=== PATIENT | female | born 1995 | race Caucasian/White ===

== ENCOUNTER 2022-02-13 19:31 | Inpatient (IN) ==
[2022-02-13] MEDS ORDERED: CARBOPROST TROMETHAMINE 250 MCG/ML AMP IM PRN (19:45)
[2022-02-13] MEDS ORDERED: miSOPROStoL 200 MCG TABLET RECTAL PRN (19:45)
[2022-02-13] MEDS ORDERED: ONDANSETRON 4 MG/2 ML VIAL IV PRN (19:45)
[2022-02-13] MEDS ORDERED: OXYTOCIN/LR 20 UNIT/1,000 ML BAG IV ONE (19:45)
[2022-02-13] MEDS ORDERED: BUTORPHANOL 2 MG/ML VIAL IV PRN (19:45)
[2022-02-13] MEDS ORDERED: MEPERIDINE 50 MG/1 ML VIAL IV PRN (19:45)
[2022-02-13] MEDS ORDERED: METHYLERGONOVINE 0.2 MG/1 ML AMP IM PRN (19:45)
[2022-02-13] MEDS ORDERED: TRANEXAMIC ACID 1,000 MG in SODIUM CHLORIDE 0.9% 100 ML IV PRN (19:45)
[2022-02-13 20:19] LABS: Basophils % 0.4 % (0.0-0.8); Eosinophils # 0.1 10*3/uL (0.0-0.87); Eosinophils % 1.2 % (0.00-10.9); Hematocrit 37.9 VOL% (35.7-47.0); Hemoglobin 12.7 GM/DL (12.0-16.0); Immature Granulocytes Absolute 0.08 #; Lymphocytes % 25.7 % (21.3-54.2); Mean Corpuscular HGB Conc 33.5 GM/DL (32-36); Mean Platelet Volume 10.6 FL (9.6-12.0); Monocytes # 0.7 10*3/uL (0.11-0.8); Monocytes % 8.9 % (1.7-12.7); Neutrophils % 62.8 % (38.7-73.9); Platelet Count 189 T/CUMM (130-400); Red Blood Count 4.21 MC/CUMM (3.8-5.5); Red Cell Distribution Width 13.4 % (9.3-17.3); White Blood Count 7.7 T/CUMM (4-12)
[2022-02-14] MEDS: LACTATED RINGERS 1,000 ML IV SCH ×3 (07:41→20:56)
[2022-02-14] MEDS ORDERED: CITRIC ACID/SODIUM CITRATE 30 ML UDCUP PO ONE (18:27)
[2022-02-14] MEDS ORDERED: ePHEDrine 50 MG/ML VIAL IV PRN (18:27)
[2022-02-14] MEDS ORDERED: FAMOTIDINE 20 MG/2 ML VIAL IV ONE (18:27)
[2022-02-14] MEDS ORDERED: hydrOXYzine HCL 25 MG/1 ML VIAL IM PRN (18:27)
[2022-02-14] MEDS ORDERED: NALOXONE 0.4 MG/ML VIAL IV PRN (18:27)
[2022-02-14] MEDS ORDERED: diphenhydrAMINE 50 MG/1 ML VIAL IV PRN (18:27)
[2022-02-14] MEDS ORDERED: PROMETHAZINE 25 MG/1 ML VIAL IM PRN (18:27)
[2022-02-14] MEDS: fentaNYL 2 MCG/ROPIV 0.2% EPID 100 ML EPIDURAL SCH (19:10)
[2022-02-14 20:46] LABS: Bilirubin,Urine Negative (Negative); Blood, Urine Negative (Negative); Glucose,Urine (UA) Negative (Negative); Ketones,Urine 15 mg/dL (Negative); Mucus,Urine Occasional /LPF (Occasional); Nitrite,Urine Negative (Negative); Protein,Urine Negative (Negative); RBC,Urine <1 /HPF (0-4); Squamous Epithelial Cell,Urine Occasional /HPF (0-10); Urine Appearance Clear (Clear); Urine Color Yellow (Yellow); Urine Specific Gravity 1.015 (1.001-1.035); Urine Urobilinogen 0.2 eU/dL (<2.0)
[2022-02-15] MEDS ORDERED: TRANEXAMIC ACID 1,000 MG/10 ML VIAL ONE (00:04)
[2022-02-15] MEDS ORDERED: miSOPROStoL 200 MCG TABLET ONE (00:04)
[2022-02-15] MEDS ORDERED: SODIUM CHLORIDE 0.9% 0 ML IV ONE (00:05)
[2022-02-15] MEDS ORDERED: METHYLERGONOVINE 0.2 MG/1 ML AMP ONE (00:05)
[2022-02-15] MEDS ORDERED: OXYTOCIN/LR 20 UNIT/1,000 ML BAG IV ONE ×2 (00:05→09:36)
[2022-02-15] MEDS ORDERED: CARBOPROST TROMETHAMINE 250 MCG/ML AMP IM ONE (00:05)
[2022-02-15] MEDS: fentaNYL 2 MCG/ROPIV 0.2% EPID 100 ML EPIDURAL SCH (02:29)
[2022-02-15] MEDS ORDERED: OXYTOCIN/LR 20 UNIT/1,000 ML BAG IV SCH (04:00)
[2022-02-15 06:59] LABS: Cord Arterial Blood HCO3 21.5 MMOL/L
[2022-02-15 07:02] LABS: Cord Venous Blood HCO3 22.2 MMOL/L; Cord Venous Blood PCO2 41.6 MMHG; Cord Venous Blood PO2 29.3
[2022-02-15] MEDS ORDERED: LANOLIN 50% CREAM 0.3 OZ TUBE TOP PRN (09:36)
[2022-02-15] MEDS ORDERED: MEASLES/MUMPS/RUBELLA VACCINE 0.5 ML VIAL SUBCUT ONE (09:36)
[2022-02-15] MEDS ORDERED: HYDROCORTISONE 2.5% RECTAL CREAM 30 GM TUBE TOP PRN (09:36)
[2022-02-15] MEDS ORDERED: ACETAMINOPHEN 325 MG TABLET PO PRN (09:36)
[2022-02-15] MEDS ORDERED: ONDANSETRON 4 MG/2 ML VIAL IV PRN (09:36)
[2022-02-15] MEDS ORDERED: RHO(D) IMMUNE GLOBULIN 300 MCG SYRINGE IM ONE (09:36)
[2022-02-15] MEDS ORDERED: oxyCODONE/ACETAMINOPHEN 5-325 MG TABLET PO PRN (09:36)
[2022-02-15] MEDS ORDERED: DIPH/TET/ACEL PERT BOOSTER VACCINE 0.5 ML VIAL IM ONE (09:36)
[2022-02-15] MEDS ORDERED: BENZOCAINE 20%/MENTHOL 0.5% SPRAY 56 GM CAN TOP PRN (09:36)
[2022-02-15] MEDS ORDERED: IBUPROFEN 800 MG TABLET PO PRN (09:36)
[2022-02-15] MEDS ORDERED: BISACODYL 10 MG SUPP RECTAL PRN (09:36)
[2022-02-15] MEDS ORDERED: WITCH HAZEL PADS 100/JAR TOP PRN (09:36)
[2022-02-15] MEDS: oxyCODONE/ACETAMINOPHEN 5-325 MG TABLET PO PRN ×2 (13:49→19:46)
[2022-02-15] MEDS: DOCUSATE SODIUM 100 MG CAPSULE PO SCH (22:19)
[2022-02-16 06:14] LABS: Basophils % 0.2 % (0.0-0.8); Eosinophils # 0.2 10*3/uL (0.0-0.87); Eosinophils % 1.4 % (0.00-10.9); Hematocrit 34.3 VOL% (35.7-47.0); Hemoglobin 11.3 GM/DL (12.0-16.0); Immature Granulocytes Absolute 0.13 #; Lymphocytes # 2.4 10*3/uL (1.4-4.0); Lymphocytes % 18.5 % (21.3-54.2); Mean Corpuscular HGB Conc 32.9 GM/DL (32-36); Mean Corpuscular Volume 91.5 FL (87-102); Mean Platelet Volume 11.1 FL (9.6-12.0); Monocytes # 1.1 10*3/uL (0.11-0.8); Monocytes % 8.2 % (1.7-12.7); Neutrophils % 70.7 % (38.7-73.9); Platelet Count 168 T/CUMM (130-400); Red Blood Count 3.75 MC/CUMM (3.8-5.5); Red Cell Distribution Width 13.6 % (9.3-17.3); White Blood Count 12.8 T/CUMM (4-12)
[2022-02-16] MEDS: DOCUSATE SODIUM 100 MG CAPSULE PO SCH ×2 (08:25→21:14)
[2022-02-17 07:24] VITALS: BP 114/70
[2022-02-17] MEDS: DOCUSATE SODIUM 100 MG CAPSULE PO SCH (08:07)
== END 2022-02-17 11:50 | disposition home or self-care (01) | DRG 807 ==
LOC: N.LD 19:31 → N.OB 02-15 09:33
PROVIDERS: ADMIT Specialist; ATTEND Specialist